=== PATIENT | female | born 1950 | race Two or more races ===

== ENCOUNTER 2024-09-15 10:23 | Emergency (ER) | payer OTHER, SELFPAY ==
[2024-09-15 10:30] VITALS: BP 162/70; PULSE 86; TEMP 37.2; O2SAT 100; BMI 21.7
--- NOTE | 2024-09-15 11:17 | ED.EYEPROB1 ---
HPI - Eye Problem General Chief complaint: Skin/Abscess/Foreign Body Stated complaint: RASH/EYE SWELLING Time Seen by Provider: 09/15/24 10:31 Source: patient Mode of arrival: walk-in Limitations: no limitations History of Present Illness HPI Narrative: The patient is coming to us after she was just evaluated with the shingles yesterday in urgent care, she was told to come to the ER in case of any extension of this rash to her eye, but she woke up this morning to find that she have irritation and swelling with the area just below the right eye in the lower eyelid The patient have no blurry vision She denies any headache or any eye pain and she also denies any fever or chills She mentioned that she started taking her valacyclovir and doxycycline in addition to the lidocaine cream Related Data Previous Rx's ?Medication ?Instructions ?Recorded cefuroxime axetil 500 mg tablet 500 mg PO BID 10 days #20 tabs 09/15/24 Allergies Allergy/AdvReac Type Severity Reaction Status Date / Time No Known Drug Allergies Allergy Verified 09/15/24 10:30 Review of Systems ROS Status of ROS 10 or more systems reviewed and unremarkable except as noted in history and below PFSH PFSH Social History Little interest or pleasure in doing things: not at all Feeling down, depressed, or hopeless: not at all Exam Narrative Exam Narrative: Nurses notes and vital signs reviewed and patient is not hypoxic. The patient have the rash of shingles just above the right ear there is no involvement of the ear itself and the patient have no rash on the auricle the patient have a redness in the area surrounding the rash with erythema extending to the right lower eyelid mildly The patient right eye examination shows no hyphema no hypopyon normal pupils and the patient have normal conjunctiva with normal range of movement of the eye with no pain with movement General: Well-appearing and in no apparent distress. Skin: Warm, dry, no pallor noted. No rash. Head: Normocephalic, atraumatic. Neck: Supple, non-tender. Ears, Nose, Mouth, and Throat: TM are clear, no nasal mucosal hypertrophy. Oral mucosa is moist, no posterior oropharynx erythema, uvula is mid-line Cardiovascular: Regular Rate and Rhythm without murmur, gallop or rub. Respiratory: No accessory muscle use or respiratory distress. Lungs are clear to auscultation, no wheezing, rales or rhonchi Chest Wall: no tenderness Back: No midline thoracic or lumbar vertebral tenderness. No CVA tenderness Musculoskeletal: normal ROM, no calf or popliteal tenderness, no lower extremity edema/swelling GI: Abdomen is soft, non-distended. Normal bowel sounds. No masses appreciated. No tenderness to palpation. No rebound, guarding, or rigidity noted. Neurological: A&O x4. No cranial nerve dysfunction observed. No truncal ataxia. Moves all extremities. Sensation intact. Psychiatric: Cooperative and interactive. Normal mood and affect. Constitutional Vital Signs, click to edit/add: Last Vital Signs Temp 99.0 F 09/15/24 10:30 Pulse 86 09/15/24 10:30 Resp 18 09/15/24 10:30 BP 162/70 H 09/15/24 10:30 Pulse Ox 100 09/15/24 10:30 O2 Del Method Room Air 09/15/24 10:30 Course Vital Signs Vital signs: Vital Signs Temperature 99.0 F 09/15/24 10:30 Pulse Rate 86 09/15/24 10:30 Respiratory Rate 18 09/15/24 10:30 Blood Pressure 162/70 H 09/15/24 10:30 Pulse Oximetry 100 09/15/24 10:30 Oxygen Delivery Method Room Air 09/15/24 10:30 Temperature 99.0 F 09/15/24 10:30 Pulse Rate 86 09/15/24 10:30 Respiratory Rate 18 09/15/24 10:30 Blood Pressure 162/70 H 09/15/24 10:30 Pulse Oximetry 100 09/15/24 10:30 Oxygen Delivery Method Room Air 09/15/24 10:30 MDM - Eye Problem MDM Narrative Medical decision making narrative: The patient first of all was instructed to stop using the spearmint cream on the right side of the face as it caused irritation to The patient have no fever no signs of systemic infection or inflammation The right lower eyelid swelling could be secondary to very mild preseptal edema Right now the patient had the cefuroxime added to her medication twice a day I did call Dr. Garrett in the ophthalmology service and he is going to evaluate the patient right now she will be sent over directly to be evaluated Patient was instructed about giving 24 to 48 hours of improvement monitoring for her rash in case of any fever or increase in the swelling she is to come back to the ER Discharge Plan Discharge Chief Complaint: Skin/Abscess/Foreign Body Clinical Impression: Shingles, Cellulitis Patient Disposition: Home, Self-Care Time of Disposition Decision: 11:08 Condition: Good Prescriptions / Home Meds: New cefuroxime axetil 500 mg tablet 500 mg PO BID 10 Days Qty: 20 0RF Print Language: Grenadian Instructions: Taj (ED) Referrals: Dr Chani Garrett [Other] - As soon as possible (please go now ) CINDY CLAY [Primary Care Provider] - 1 week
== END 2024-09-15 11:21 | disposition home or self-care (01) ==
PROVIDERS: Emergency Provider Emergency Medicine; PCP Family Medicine
DX: B02.9 Zoster without complications (principal); L03.211 Cellulitis of face
CPT/HCPCS: 99283